=== PATIENT | female | born 1950 | race Caucasian/White ===

== ENCOUNTER → 2017-11-22 | Outpatient (CLI) | payer OTHER | END | disposition home or self-care (01) | LOC: C.PATHSPEC 17:21 | PROVIDERS: ATTEND Plastic Surgery | DX: R22.9 Localized swelling, mass and lump, unspecified (principal); L72.0 Epidermal cyst ==

== ENCOUNTER 2022-04-11 10:04 | Observation (INO) ==
--- NOTE | 2022-03-13 08:35 | PAT Medication Instructions ---
Medication Instructions Date of Service March 13, 2022 Home Medications Medication Instructions Recorded benralizumab 30 mg/mL subcutaneous 30 mg SQ .COMPLEX #1 ml 06/24/19 syringe (Fasenra) epinephrine 0.3 mg/0.3 mL 0.3 mg IM Q10M PRN #1 pkt 06/24/19 injection, auto-injector Wheeled Walker #1 ea 02/16/22 albuterol sulfate 90 mcg/actuation aerosol inhaler 2 puffs INHALATION BID PRN aspirin 325 mg tablet 325 mg PO BID budesonide-formoterol HFA 160 mcg-4.5 mcg/actuation aerosol inhaler 2 puffs INHALATION BID cetirizine 10 mg capsule 10 mg PO DAILY PRN cholecalciferol (vitamin D3) 25 mcg (1,000 unit) capsule 1,000 units PO QAM fenofibrate 160 mg tablet 160 mg PO PM montelukast 10 mg tablet 10 mg PO HS omega-3 fatty acids 1,000 mg capsule (Fish Oil Concentrate) 1,000 mg PO HS triamcinolone acetonide 0.1 % topical ointment 1 appln TOPICAL BID benralizumab 30 mg/mL subcutaneous syringe (Fasenra) 30 mg SQ .COMPLEX epinephrine 0.3 mg/0.3 mL injection, auto-injector 0.3 mg IM Q10M PRN biotin 1,000 mcg chewable tablet 1,000 mcg PO QAM doxycycline hyclate 100 mg capsule 100 mg PO BID Continue as directed epinephrine 0.3 mg/0.3 mL injection, auto-injector 0.3 mg IM Q10M PRN (if needed) ASK your prescriber and surgeon benralizumab 30 mg/mL subcutaneous syringe (Fasenra) 30 mg SQ .COMPLEX aspirin 325 mg tablet 325 mg PO BID STOP taking 2 weeks before surgery (or as soon as possible if surgery is within 2 weeks) omega-3 fatty acids 1,000 mg capsule (Fish Oil Concentrate) 1,000 mg PO HS STOP taking 48 hours before surgery fenofibrate 160 mg tablet 160 mg PO PM STOP taking 24 hours before surgery triamcinolone acetonide 0.1 % topical ointment 1 appln TOPICAL BID DO NOT take the morning of surgery cetirizine 10 mg capsule 10 mg PO DAILY PRN cholecalciferol (vitamin D3) 25 mcg (1,000 unit) capsule 1,000 units PO QAM biotin 1,000 mcg chewable tablet 1,000 mcg PO QAM Take morning of surgery With a small sip of water, OTHERWISE NOTHING TO EAT OR DRINK AFTER MIDNIGHT: albuterol sulfate 90 mcg/actuation aerosol inhaler 2 puffs INHALATION BID PRN (use if needed; please bring rescue inhaler with you to hospital day of surgery if possible) budesonide-formoterol HFA 160 mcg-4.5 mcg/actuation aerosol inhaler 2 puffs INHALATION BID doxycycline hyclate 100 mg capsule 100 mg PO BID Take evening before surgery albuterol sulfate 90 mcg/actuation aerosol inhaler 2 puffs INHALATION BID PRN (if needed) budesonide-formoterol HFA 160 mcg-4.5 mcg/actuation aerosol inhaler 2 puffs INHALATION BID cetirizine 10 mg capsule 10 mg PO DAILY PRN (if needed) montelukast 10 mg tablet 10 mg PO HS doxycycline hyclate 100 mg capsule 100 mg PO BID Other Notes If you have any questions please call us at [phone] or [phone] or [phone] or [phone]
--- NOTE | 2022-03-14 12:16 | Anesthesiology Consultation ---
Date of Service March 14, 2022 Assessment & Plan (1) Encounter for pre-operative examination: - PCP clearance prior to surgery with persistent respiratory symptoms, abnormal respiratory examination and new leukopenia (3.3). Pt aware and agrees, verbalized understanding she is to remain in communication with her PCP. Awaiting medical clearance. - cardiology office visit 11/21/21 [facility]: "...doing well from cardiovascular perspective at this time...caution with change in positions to minimize symptomatic orthostatic hypotension...f/u in 1 year or sooner..." - ASA: to surgeon/prescriber instructions. Pt states per manager molecular/ENT is to reduce ASA to 325 mg daily at certain pre-op interval and wants to confirm with anesthesiologist this is acceptable for neuraxial anesthesia. This was confirmed with Dr. Ramirez that patient would still be candidate for neuraxial anesthesia. - COVID screening: Per assessment on 03/14/2022: Travel screen negative, no known COVID-19 positive contacts or current COVID-19 related symptoms in past 2 weeks. Patient vaccinated. Surgeon arranging preop COVID testing, scheduled 04/07/2022. Awaiting results. Chart Review Chart Review: Pending: Refer to Additional Notes / Consult section and Patient seen in Pre Admission Testing Teaching & Discussion - Pre-Anesthesia Teaching/Discussion Notes: Instructed NPO after midnight before surgery, except medications with 15 cc of water. Medication instructions provided according to the PAT guidelines. - Pt had booklet of written questions in clinic, most covered however pt expressed difficulty sorting through papers in clinic and with need to discuss medication list mutual decision making patient will call my direct number when available tomorrow afternoon. - Pt contacted clinic and provided updated medication list. Medication list will be mailed to her, she states will call office if does not receive instructions in mail. I relayed testing results in detail, she is aware of need to follow-up with her PCP prior to surgery and also overall regarding her persistent respiratory symptoms. She inquired if should start taking iron supplement given that Hgb was 11.8, I advised she should further discuss with PCP as iron testing is not obtained as standard pre-op evaluation and Hgb is very minimally reduced. She requested copy of letter being faxed to PCP also be mailed to her which we will send and that testing be faxed to ENT-Dr. Robledo in [place] and cardiology-Dr. Syed with [facility]. I advised we can send results to those providers for chart completion. She expressed appreciation for discussion and confirmed all questions were answered to her satisfaction, denied additional questions. - Total time in direct conversation with patient-60 minutes at appointment, 15 minutes on phone. History Surgery Operation Date: 04/11/22 07:00 Proposed Procedures p Right Total Knee Arthroplasty - Herman Peters MD Diagnosis in chart of right knee osteomyelitis. Pt denies, not noted in most recent ortho note-per Joanna with surgeon's office should be osteoarthritis and their office will adjust. Removed dx from this note. Height/Weight Height: 5 ft 8 in Weight: 78.1 kg Allergies Allergy/AdvReac Type Severity Reaction Status Date / Time ibuprofen Allergy Severe Anaphylaxis Verified 03/14/22 12:44 naproxen Allergy Severe SHORTNESS Verified 03/10/22 14:16 OF BREATH adhesive Allergy Intermediate Rash Verified 03/10/22 14:16 cefuroxime Allergy Intermediate hives Verified 03/14/22 12:44 clarithromycin [From Biaxin] Allergy Intermediate Hives Verified 03/10/22 14:16 latex Allergy Intermediate Rash Verified 03/10/22 14:16 levofloxacin [From Levaquin] Allergy Intermediate Rash Verified 03/10/22 14:16 moxifloxacin Allergy Intermediate hives Verified 03/14/22 12:44 rosuvastatin [From Crestor] Allergy Intermediate Muscle Pain Verified 03/10/22 14:16 Sulfa (Sulfonamide Allergy Intermediate Rash Verified 03/10/22 14:16 Antibiotics) soy Allergy Mild itching Verified 03/10/22 14:17 Medications Home Medications Medication Instructions Recorded Confirmed Last Taken albuterol sulfate 90 mcg/actuation 2 puffs INHALATION BID PRN #1 gm 06/17/19 Unknown aerosol inhaler aspirin 325 mg tablet 325 mg PO BID tab 06/17/19 03/10/22 Unknown budesonide-formoterol HFA 160 2 puffs INHALATION BID #3 gm 06/17/19 03/10/22 Unknown mcg-4.5 mcg/actuation aerosol inhaler cetirizine 10 mg capsule 10 mg PO DAILY PRN cap 06/17/19 03/10/22 Unknown cholecalciferol (vitamin D3) 25 1,000 units PO QAM cap 06/17/19 03/10/22 Unknown mcg (1,000 unit) capsule fenofibrate 160 mg tablet 160 mg PO PM tab 06/17/19 03/10/22 Unknown montelukast 10 mg tablet 10 mg PO HS tab 06/17/19 03/10/22 Unknown omega-3 fatty acids 1,000 mg 1,000 mg PO HS 06/17/19 03/10/22 Unknown capsule (Fish Oil Concentrate) triamcinolone acetonide 0.1 % 1 appln TOPICAL BID #1 gm 06/17/19 03/10/22 Unknown topical ointment benralizumab 30 mg/mL subcutaneous 30 mg SQ .COMPLEX #1 ml 06/24/19 03/10/22 Unknown syringe (Fasenra) epinephrine 0.3 mg/0.3 mL 0.3 mg IM Q10M PRN #1 pkt 06/24/19 03/10/22 Unknown injection, auto-injector Wheeled Walker #1 ea 02/16/22 02/16/22 Unknown biotin 1,000 mcg chewable tablet 1,000 mcg PO QAM 03/10/22 03/10/22 Unknown doxycycline hyclate 100 mg capsule 100 mg PO BID 03/10/22 03/10/22 Unknown Valtrex PO PRN 03/14/22 Unknown ascorbic acid (vitamin C) PO DAILY 03/14/22 Unknown famotidine PO PRN 03/14/22 Unknown Metamucil 03/15/22 Unknown guaifenesin 03/15/22 Unknown Additional Notes: Pt has multiple medications not in system, unsure of current regimen for upper respiratory illness. We discussed options and she is going to call office when available tomorrow afternoon and she states will have updated medication list, I will mail medication list to her. Past Medical History Medical History (Updated 03/15/22 @ 08:46 by Vivian Alcantar PA-C) Aortic regurgitation mild per 2019 echo Aortic stenosis mild per 2019 echo Aspirin sensitivity s/p de-sensitization therapy Asthma severe persistent/eosinophilic per manager molecular records; reports somewhat increased during current illness; states has not been using maintenance inhaler for some time; last rescue inhaler use 2 wks ago-average use several times monthly; follows with Dr. Ross, [place] manager molecular and Dr. Robledo, ENT Bronchitis amoxicillin and prednisone with persistent symptoms, on doxycycline x 6 days at present, reports slight improvement though persistent cough Cardiac murmur follows with Dr. Syed Carotid artery stenosis < 50% stenosis ICA bilat per 2019 carotid duplex Chronic sinusitis Degenerative disc disease Depression remote hx Diverticular disease hx, daily Metamucil Esophageal reflux prn famotidine Herpes simplex current cold sore, taking Valtrex History of actinic keratoses History of Mohs micrographic surgery for skin cancer scalp History of penicillin allergy Pt states s/p desensitization therapy, reports no problems with recent amoxicillin course Hyperlipidemia Incomplete bladder emptying Osteoporosis lumbar per pt Polyp, nasal sinus s/p multiple procedures, required IV antibiotic x 2 wks approx 5 yrs ago d/t weakened condition d/t extensive sinus dysfunction requiring multiple procedures per pt Psoriasis resolved after scalp Mohs surgery Pulmonary regurgitation mild per 2019 echo Samter's triad Vertigo resolves with physical therapy Patient denies h/o stroke, seizures, heart attack, heart failure, DM, HTN, blood clots or blood transfusions. Exercise / Class Metabolic Activity II 4-5 Yardwork/Stairs/Walk up hill (denies CP or SOB with 1 FOS) Past Family History Family History Other Dyslipidemia Heart disease Hypertension Myocardial infarction Past Surgical History Surgical History History of appendectomy History of colonoscopy History of oral surgery tooth extractions with implants History of sinus surgery several History of tonsillectomy Hx of surgical procedure growth removed from neck area > benign Mucocele of ethmoid sinus with surgery in 1989 Past Anesthesia History No Hx of Anesthesia Complications and No Family Hx of Anesthesia Complications History of PONV History of PONV (early , denies recent issues with pre-dosed medication) and Hx of Motion Sickness Social History Smoking Status: Former smoker Do You Dip or Chew Tobacco: No Smoking End Date: 1983 Hx Alcohol Use: Yes Alcohol type: wine and hard liquor alcohol intake frequency: holidays/special occasions only Hx Substance Use: No substance use type: does not use Review of Systems Fever, chills several weeks ago. She reports palpitations with prednisone, resolved with completing medication. Patient denies chest pain, shortness of breath, dyspnea on exertion, snoring, or witnessed apneas. Physical Exam Vital Signs Vitals BP 145/80 (She states readings are typically 110s/60s and is stressed regarding upcoming surgery) P 65 TEMP 98.8 SP02 95% on RA RESP 17 Physical Full cervical extension range of motion without pain TMD 3.5 finger breaths Mallampati Score 2 Dentition: intact, implants lower back bilat, several crowns-none in front; denies chipped or loose teeth or bridges Lungs: normal respiratory effort. Patient speaking clearly in full sentences without difficulty. Intermittent cough. Good air movement, diffuse expiratory wheezes, no rales or rhonchi Cardiac: regular rate and rhythm, 2/6 systolic murmur Carotid arteries: negative bruit bilat Lab Results Anesthesia Preop Results Results Anesthesia Widget: WBC 3.31 K/uL (4.8-10.8) L 03/14/22 Hgb 11.8 g/dL (12.0-16.0) L 03/14/22 Hct 37.4 % (37-47) 03/14/22 Plt 220 K/uL (130-400) 03/14/22 Na 140 mmol/L (136-145) 03/14/22 K 4.0 mmol/L (3.5-5.1) 03/14/22 Cl 109 mmol/L (98-107) H 03/14/22 CO2 25 mmol/L (21-32) 03/14/22 BUN 18 mg/dl (6-23) 03/14/22 Creat 0.61 mg/dl (0.6-1.2) 03/14/22 Glucose Level 90 mg/dl (70-99(Fasting)) 03/14/22 PT 10.9 Seconds (9.0-12.0) 03/14/22 PTT 26.1 Seconds (21.0-31.0) 03/14/22 INR 1.0 (0.9-1.1) 03/14/22 Blood Type O Positive 03/14/22 Antibody Screen NEGATIVE 03/14/22 Testing Electrocardiogram Date: 03/14/22 NSR, rate 70 bpm Chest X-Ray Date: 03/14/22 The cardiomediastinal silhouette is unremarkable noting atherosclerotic calcification of the thoracic aorta. There is mild bibasilar scarring/atelectasis. No airspace consolidation or pleural effusion is identified. Nonspecific interstitial thickening is likely chronic. There is no pneumothorax. The skeletal structures are osteopenic. The bony thorax appears intact. IMPRESSION: No active disease in the chest. Echocardiogram Date: 09/15/20 EF 59% LV wall motion normal Mild aortic valve stenosis Mild aortic valve regurgitation Mild pulmonary regurgitation Stress Test Date: 07/02/17 Exercise MPHR 100% EF 55-59% Normal LV wall thickness, no "clear-cut" wall motion abnormalities Grade I diastolic dysfunction Other Testing Carotid duplex 06/16/2019 Right carotid artery duplex examination indicates evidence of less than 50% stenosis of the internal carotid artery. Left carotid artery duplex examination indicates evidence of less than 50% stenosis of the internal carotid artery.
--- NOTE | 2022-03-15 14:55 | PAT Medication Instructions ---
Medication Instructions Date of Service March 15, 2022 Home Medications Medication Instructions Recorded benralizumab 30 mg/mL subcutaneous 30 mg SQ .COMPLEX #1 ml 06/24/19 syringe (Fasenra) epinephrine 0.3 mg/0.3 mL 0.3 mg IM Q10M PRN #1 pkt 06/24/19 injection, auto-injector Wheeled Walker #1 ea 02/16/22 albuterol sulfate 90 mcg/actuation aerosol inhaler 2 puffs INHALATION BID PRN aspirin 325 mg tablet 325 mg PO BID budesonide-formoterol HFA 160 mcg-4.5 mcg/actuation aerosol inhaler 2 puffs INHALATION BID cetirizine 10 mg capsule 10 mg PO DAILY PRN cholecalciferol (vitamin D3) 25 mcg (1,000 unit) capsule 1,000 units PO QAM fenofibrate 160 mg tablet 160 mg PO PM montelukast 10 mg tablet 10 mg PO HS omega-3 fatty acids 1,000 mg capsule (Fish Oil Concentrate) 1,000 mg PO HS triamcinolone acetonide 0.1 % topical ointment 1 appln TOPICAL BID benralizumab 30 mg/mL subcutaneous syringe (Fasenra) 30 mg SQ .COMPLEX epinephrine 0.3 mg/0.3 mL injection, auto-injector 0.3 mg IM Q10M PRN Amanda Walker #1 ea biotin 1,000 mcg chewable tablet 1,000 mcg PO QAM doxycycline hyclate 100 mg capsule 100 mg PO BID Valtrex PO PRN ascorbic acid (vitamin C) PO DAILY famotidine PO PRN Metamucil guaifenesin Continue as directed epinephrine 0.3 mg/0.3 mL injection, auto-injector 0.3 mg IM Q10M PRN(if needed) doxycycline hyclate 100 mg capsule 100 mg PO BID Valtrex PO PRN(if needed) ASK your prescriber and surgeon aspirin 325 mg tablet 325 mg PO BID benralizumab 30 mg/mL subcutaneous syringe (Fasenra) 30 mg SQ .COMPLEX STOP taking 2 weeks before surgery omega-3 fatty acids 1,000 mg capsule (Fish Oil Concentrate) 1,000 mg PO HS biotin 1,000 mcg chewable tablet 1,000 mcg PO QAM STOP taking 48 hours before surgery fenofibrate 160 mg tablet 160 mg PO PM STOP taking 24 hours before surgery triamcinolone acetonide 0.1 % topical ointment 1 appln TOPICAL BID DO NOT take the morning of surgery cetirizine 10 mg capsule 10 mg PO DAILY PRN cholecalciferol (vitamin D3) 25 mcg (1,000 unit) capsule 1,000 units PO QAM ascorbic acid (vitamin C) PO DAILY guaifenesin Metamucil [place] Take morning of surgery With a small sip of water, OTHERWISE NOTHING TO EAT OR DRINK AFTER MIDNIGHT: albuterol sulfate 90 mcg/actuation aerosol inhaler 2 puffs INHALATION BID PRN (use if needed; please bring with you to hospital day of surgery if possible) budesonide-formoterol HFA 160 mcg-4.5 mcg/actuation aerosol inhaler 2 puffs INH ALATION BID famotidine PO PRN(if needed) Take evening before surgery albuterol sulfate 90 mcg/actuation aerosol inhaler 2 puffs INHALATION BID PRN(if needed) budesonide-formoterol HFA 160 mcg-4.5 mcg/actuation aerosol inhaler 2 puffs INHALATION BID montelukast 10 mg tablet 10 mg PO HS Other Notes If you have any questions please call us at [phone] or [phone] or [phone] or [phone]
--- NOTE | 2022-04-09 11:42 | History and Physical Report ---
DATE OF ADMISSION: 04/11/2022. CHIEF COMPLAINT: Right knee pain. HISTORY OF PRESENT ILLNESS: The patient is a 71-year-old female who presents for surgical treatment of her right knee. She has several-year history of increasing right knee pain and discomfort that beach s gotten significantly worse over the past 2 years. She has been through extensive conservative yashira tment including physical therapy done in [place]. She feels this is made her knee stronger, but no t helped relieve her pain. She is followed by Dr. Talamantes, the [facility] in service education teacher. She has had some intermittent injections, which sometimes help and other times has been painful. She describ es global pain. She cannot walk any significant distance. She would now like to have her right knee fixed. PAST MEDICAL HISTORY: Significant for: 1. Heart murmur. 2. Elevated cholesterol. 3. Asthma. 4. Back pain. 5. Significant sinus problems. 6. Unspecified skin cancer. PAST SURGICAL HISTORY: Includes, 1. Neck surgery. 2. Mohs surgery. 3. Sinus surgery. ALLERGIES: SULFA, BACTRIM, STATINS, PREDNISONE. SOCIAL HISTORY: This is a 71-year-old female. She is . Two children. Rare alcohol intake. She does not smoke. FAMILY HISTORY: Significant for heart disease. REVIEW OF SYSTEMS: Negative for diabetes, neurologic problem, vascular problem, or bleeding disorder s. No history of DVT or PE. No known bleeding problems. She does have some chronic sinus issues. PHYSICAL EXAMINATION: GENERAL: Shows a pleasant middle-aged female. Looks to be in pretty good health. HEENT: Benign. NECK: Supple. No lymphadenopathy. LUNGS: Clear to auscultation. HEART: Regular rate and rhythm. ABDOMEN: Soft, nontender, nondistended. EXTREMITIES: Grossly neurovascularly intact except as follows. Examination of the right knee reveals the patient walks with a slight bit of a limp. She has valgus alignment to her knee, which goes into further valgus with weightbearing. She has mild tenderness la terally. Small knee joint effusion. Range of motion 5-125. No instability. No pain with hip motio n. X-RAYS: X-rays of the right knee were reviewed. It shows advanced right knee lateral compartment DJ D. She has complete loss of her lateral joint space. She has subchondral sclerosis. Not a lot of o steophyte formation. ASSESSMENT: A 71-year-old female with advanced right knee lateral compartment degenerative joint dis ease. She has failed conservative treatment and would like to have her knee fixed. She has been see n by her medical doctor and cleared for surgery. PLAN: We are going to proceed with right total knee replacement. The risks and benefits of this pro cedure were explained to the patient include but not limited to DVT, PE, , infection, neurologic al injury, vascular injury, bleeding problem, pain, limited range of motion, stiffness, failure to re lieve her symptoms, incomplete relief of symptoms, etc. The patient understands and desires to proce ed. Informed consent was obtained. She does have some chronic sinus issues and has been on chronic aspirin. We will certainly keep her on aspirin in the perioperative period for DVT prophylaxis. She will talk to anesthesia about whethe r she can be still taking this or whether there is any need to do a general anesthesia needs to resol ve. I encouraged her to stop for 10 days beforehand so that she can have a spinal because I think it is better for her, but I will leave that up to her and the anesthesia. She is going to have [facility] program. I will see her back 2 weeks postop. Job ID: [id number]
[~2022-04-11 10:04] MED LIST: ACETAMINOPHEN 500 MG TAB PO SCH; BUPIVACAINE 0.5 % 5 MG/1 ML PF 10ML VIAL ONE; BUPIVACAINE LIPOSOME/PF 266 MG, BUPIVACAINE/EPINEPHRINE 50 ML, SODIUM CHLORIDE 0.9% 30 ... INFIL SCH; FAMOTIDINE 20 MG TAB PO SCH; GABAPENTIN 300 MG CAP PO SCH; LR 500ML BOLUS, THEN 15ML/HR IV SCH; LR 60ML/HR IV SCH; ROPIVACAINE 0.5% 5 MG/ML 30 ML VIAL ONE; TRANEXAMIC ACID 1,000 MG **IV Intra-op IV SCH
[2022-04-11] MEDS ORDERED: VANCOMYCIN CONSULT ACTIVE PRN ×2 (11:34→15:23)
[2022-04-11] MEDS ORDERED: VANCOMYCIN HCL 1,250 MG in SODIUM CHLORIDE 0.9% 500 ML IV STA (11:39)
--- NOTE | 2022-04-11 11:41 | History & Physical Bridge Note ---
Date of Service April 11, 2022 History & Physical Bridge Note I have examined the patient, reviewed the History & Physical and in the interval since the performance of the History & Physical I have noted the following changes of clinical significance: no changes noted
[2022-04-11] MEDS ORDERED: VANCOMYCIN HCL 1,250 MG in SODIUM CHLORIDE 0.9% 250 ML IV ONE (11:45)
[2022-04-11] MEDS ORDERED: fentaNYL citrate 100 MCG/2 ML VIAL ONE (12:03)
[2022-04-11] MEDS ORDERED: MIDAZOLAM HCL 1 MG/ML 2ML VIAL ONE ×2 (12:03→14:20)
[2022-04-11] MEDS ORDERED: ONDANSETRON INJ 2 MG/ML 2 ML VIAL IV PRN ×2 (12:26→16:27)
[2022-04-11] MEDS ORDERED: ATROPINE SULFATE 0.1 MG/ML 10ML SYR IV PRN (12:26)
[2022-04-11] MEDS ORDERED: fentaNYL citrate 100 MCG/2 ML VIAL IV PRN (12:26)
[2022-04-11] MEDS ORDERED: ePHEDrine sulfate 50 MG/ML AMP IV PRN (12:26)
[2022-04-11] MEDS ORDERED: BUPIVACAINE LIPOSOME 1.3% 266 MG/20 ML VIAL ONE (13:13)
[2022-04-11] MEDS ORDERED: SODIUM CHLORIDE 0.9% INJ 10 ML VIAL ONE (13:13)
[2022-04-11] MEDS ORDERED: BUPIVACAINE/EPINEPHRINE 0.25% 1:200,000 30 ML VIAL ONE ×2 (13:13→13:14)
[2022-04-11] MEDS ORDERED: EPINEPHrine INJ 1 MG/ML AMP ONE (13:27)
[2022-04-11] MEDS ORDERED: KETAMINE 50 MG/5 ML SYRINGE ONE (14:01)
[2022-04-11] MEDS ORDERED: ONDANSETRON INJ 2 MG/ML 2 ML VIAL ONE (14:12)
[2022-04-11] MEDS ORDERED: GLYCOPYRROLATE 0.2 MG/ML VIAL ONE (14:12)
[2022-04-11] MEDS ORDERED: ePHEDrine sulfate 50 MG/ML SYR ONE (14:23)
[2022-04-11] MEDS ORDERED: PROPOFOL IV EMULSION 10 MG/ML 20 ML VIAL IV ONE ×2 (14:48→14:55)
--- NOTE | 2022-04-11 15:32 | Operative Report ---
PG Post Operative Report Pre & Post Diagnosis Operation Date: 04/11/22 12:30 Pre-Op Diagnosis: Right Knee Osteoarthritis Post-Op Diagnosis: Right Knee Osteoarthritis I identified the patient and participated in the time-out.: Yes Procedure Operation Date: 04/11/22 12:30 Actual Procedures p Right Total Knee Arthroplasty(Right) - Herman Peters MD Surgeon Herman Peters MD Projector Booth Operator Jay Hawley PA-C Estimated Blood Loss 50 Findings Consistent with Post-Op Diagnosis Operative findings real advanced right knee tricompartment DJD. She had grade 4 disease in all 3 compartments. Not much eburnation or sclerosis but just full- thickness cartilage loss. She did have a moderate-sized joint effusion. Diffuse osteopenia. Specimens Right knee sent for pathology Anesthesia Type Spinal MAC Complications none Disposition Accompanied Patient To Recovery: No Indications Patient is 71-year-old female said a several year history of gradual progressive increasing right knee pain discomfort. She been through extensive conservative treatment which became less successful over time. She elected proceed with total knee arthroplasty. Description of Procedure Operative implants consist of: 1 Biomet Vanguard size 65 right posterior stabilized femoral component. 2. Biomet size 75 tibial tray. 3. 12 mm posterior stabilized polyethylene insert. 4. 31 x 8 all polypatella. The patient was taken to the operating, identified, and placed on the operating table supine position protectors were properly padded. IV antibiotics 5 by anesthesia team. A spinal anesthetic and abductor canal block had provided in the holding area. Wilkerson catheter was placed in sterile fashion. Right thigh tent was then placed in the right lower extremities then prepped and draped in usual sterile fashion. The right leg was elevated exsanguinated with use of an Esmarch and the tourniquet was set at 300 mmHg. An anterior approach to the right knee was then performed to longitudinal incision centered over the patella. Sharp dissection was got through subcutaneous this down the extensor mechanism. A medial parapatellar arthrotomy incision was made. Some subperiosteal dissection was carried out medially. The fat pad was dissected beneath patella tendon. Lateral patellofemoral ligament was released. Patella was subluxated laterally and the knee was flexed. The osteophytes were taken off distal femur. The ACL and PCL were then released from the distal femur and the tibia subluxated anteriorly. The external tibial alignment jig was then placed the interface the tibia and adjusted 12 mm medially. Proximal tibial cut was made remove about 3 to 4 mm of bone from the medial side. Her bone was pretty osteopenic. The tibia sized to a size 75. I really try to maximize coverage due to her osteopenia. Attention drawn the femur. The distal femur was entered with a sharp drill. Intramedullary canal was suction. A right 5 degree valgus cutting guide was placed. Distal femoral cutting block was pinned in place. Distal femoral cut was made to take an additional 3 mm of bone off distal femur. Femur was then sized to a size 65. The AP cutting block was pinned parallel to the epicondylar axis which was 4 degrees of external rotation. The anterior cut, anterior chamfer, posterior cut, posterior chamfer cuts were made. Box cutting guide was placed in the just slight lateral box cut was made. The knee was flexed. The remnants of the medial and lateral menisci were excised. I did have to release the popliteus in order to equalize the flexion gap. Great care was taken to protect the peroneal nerve at all times. A trial femoral component was placed. The tibial tray was pinned in maximum external rotation and the drill and stem punch were used. Defect in proximal tibia for the tibial tray. Knee was then trialed and the 12 mm insert fit most appropriately. Attention drawn the patella. The patella was cleaned of all soft tissues. Patella thickness measured 23 mm in thickness cut down to 13. Was sized to a size 31 patella. The lug holes were drilled for the 31 patella. The lateral osteophyte was removed. Patella button was placed. Knee was taken through range of motion and the patella tracked nicely with no thumbs test. Attention drawn to place the permanent components. All trial components were removed. Bone plug was placed in the distal femur limit blood loss. A double batch [place] G cement was mixed. Biomet Vanguard size 65 right posterior stabilized femoral component, a size 75 tibial tray, 12 mm posterior stabilized polyethylene insert, and a 31 x 8 all polypatella then cemented in place. Knee was brought out into full extension total cement hardened. Final cement check was then performed. Pericapsular tissues were injected with total 100 cc of combination of 20 cc of Exparel, 30 cc normal saline, 50 cc of quarter percent Marcaine with epinephrine. Patient did receive 1 g tranexamic acid. The tourniquet was then let down for final tourniquet time 50 minutes. Hemostasis assured use electrocautery. Extensor mechanism closed with combination 1 PDS suture #1 Vicryl suture in a [id number] fashion with extensor mechanism checked found to be intact and subcutaneous tissue then closed with 2 Dexon suture in a buried interrupted fashion. Skin was closed skin chris. Leg was then cleaned and dried and sterile dressed with Xeroform, 4 fours, sterile cast padding, Johny bandage were applied. Patient then transferred to the recovery room in stable condition. Patient tolerated procedure well and there were no complications. Jay Hawley, my physician senior executive assistant, was present for the entire procedure. His assistance was essential and required for appropriate patient positioning, pre pping and draping, surgical exposure, performing the technical details of the operation, placement the implants, closure of the wound, and placement of the sterile bandage. I attest to the content of the Intraoperative Record and any orders documented therein. Any exceptions are noted below.
--- NOTE | 2022-04-11 15:44 | Anesthesiology Progress Note ---
Date of Service April 11, 2022 Anesthesia Post Procedure Vital Signs Vital Signs: Temp Pulse Pulse Resp BP Pulse Ox 04/11/22 15:40 90 16 120/73 98 04/11/22 15:30 86 12 112/67 97 04/11/22 15:22 36.6 C 93 H 22 115/68 96 04/11/22 10:43 36.7 C 78 20 127/71 96 Transfer of Care Handoff Completed per policy Notes Mental Status: alert / awake / arousable Patient Amnestic to Procedure: Yes Nausea / Vomiting: adequately controlled Pain: adequately controlled Airway Patency, RR, SpO2: stable & adequate BP & HR: stable & adequate Hydration State: stable & adequate Neuraxial Anesthesia: was administered and sensory block is resolving Anesthetic Complications: no major complications apparent and Pt Satisfied with anesthetic care
[2022-04-11] MEDS ORDERED: NON-FORMULARY MEDICATION (Benralizumab [Fasenra] 30 mg/mL syringe) SQ SCH (16:27)
[2022-04-11] MEDS ORDERED: NALOXONE HCL 0.4 MG/1 ML VIAL/CARP IV PRN (16:27)
[2022-04-11] MEDS ORDERED: METOCLOPRAMIDE HCL INJ 5 MG/ML 2 ML VIAL IV PRN (16:27)
[2022-04-11] MEDS ORDERED: EPINEPHrine ADULT AUTO-INJECT 0.3 MG SYR IM PRN (16:27)
[2022-04-11] MEDS ORDERED: MAGNESIUM HYDROXIDE SUSP 30 ML UDC PO PRN (16:27)
[2022-04-11] MEDS ORDERED: ALUMINUM/MAGNESIUM SUSP 30 ML UDC PO PRN (16:27)
[2022-04-11] MEDS ORDERED: bisacodyL 10 MG SUPP PR PRN (16:27)
[2022-04-11] MEDS ORDERED: ALBUTEROL HFA 8 GM INHALER INH PRN (16:27)
[2022-04-11] MEDS: ASCORBIC ACID 500 MG TAB PO SCH (17:10)
[2022-04-11] MEDS: SODIUM CHLORIDE 0.9% 1000ML 1,000 ML IV SCH (17:10)
[2022-04-11] MEDS ORDERED: CETIRIZINE HCL 10 MG TABLET PO PRN (17:10)
--- NOTE | 2022-04-11 17:19 | XRay Report ---
XR knee RT 1 or 2V routine CLINICAL HISTORY: Surgical Post Op. Status post total knee replacement COMPARISON STUDY: No previous studies for comparison. TECHNIQUE: 2 right knee views FINDINGS: The patient is status post total knee replacement. The prosthetic components are in anatomi c alignment with no acute abnormality seen. Air is present within the soft tissues from the procedure . Skin chris are seen anteriorly. IMPRESSION: 1. Status post total knee replacement. ACT 112: Negative or not required by law. Electronically signed by: Angel Ruvalcaba M.D. 04/11/2022 5:18 PM
[2022-04-11] MEDS ORDERED: VANCOMYCIN HCL 1,250 MG in SODIUM CHLORIDE 0.9% 500 ML IV ONE (18:00)
[2022-04-11] MEDS: oxyCODONE HCL IR 5 MG TAB (IMMEDIATE RELEASE) PO PRN (18:23)
[2022-04-11] MEDS: HYDROmorphone INJ 0.5 MG/0.5 ML SYR IV PRN (20:35)
[2022-04-11] MEDS: ASPIRIN 325 MG ECTAB PO SCH (20:37)
[2022-04-11] MEDS: DOCUSATE SODIUM 100 MG CAP PO SCH (20:38)
[2022-04-11] MEDS: FENOFIBRATE NANOCRYSTALLIZED 145 MG TABLET PO SCH (20:38)
[2022-04-11] MEDS: OMEGA-3 (PURIFIED FISH OIL) 1 GM CAP PO SCH (20:38)
[2022-04-11] MEDS: SENNA 8.6 MG TAB PO SCH (20:39)
[2022-04-11] MEDS: MONTELUKAST SODIUM 10 MG TABLET PO SCH (20:39)
[2022-04-11] MEDS: TRIAMCINOLONE ACET 0.1% OINT 15 GM TUBE TOP SCH (20:40)
[2022-04-11] MEDS: ACETAMINOPHEN 500 MG TAB PO SCH (21:02)
[2022-04-11] MEDS: ALLERGY Noted to ORDERED Medication SCH ×6 (21:06→22:01)
[2022-04-11] MEDS ORDERED: TRANEXAMIC ACID / 0.7% NACL 1,000 MG/100 ML BAG IV SCH (21:30)
[2022-04-12] MEDS: HYDROmorphone INJ 0.5 MG/0.5 ML SYR IV PRN ×4 (00:43→18:08)
[2022-04-12] MEDS: oxyCODONE HCL IR 5 MG TAB (IMMEDIATE RELEASE) PO PRN ×3 (03:04→15:46)
[2022-04-12] MEDS: SODIUM CHLORIDE 0.9% 1000ML 1,000 ML IV SCH (03:16)
[2022-04-12] MEDS: ACETAMINOPHEN 500 MG TAB PO SCH ×3 (05:44→20:50)
[2022-04-12] MEDS ORDERED: dexAMETHasone 10 MG in SYRINGE 0 ML IV SCH (08:00)
[2022-04-12] MEDS: DOCUSATE SODIUM 100 MG CAP PO SCH ×2 (08:17→20:47)
[2022-04-12] MEDS: CHOLECALCIFEROL 1,000 UNITS 25 MCG TAB PO SCH (08:17)
[2022-04-12] MEDS: ASPIRIN 325 MG ECTAB PO SCH ×2 (08:17→20:47)
[2022-04-12] MEDS: MULTIVITAMIN TAB PO SCH (08:17)
[2022-04-12] MEDS: ASCORBIC ACID 500 MG TAB PO SCH ×2 (08:17→16:26)
[2022-04-12] MEDS: DOCUSATE SODIUM/SENNA 50/8.6MG TAB PO SCH (08:17)
[2022-04-12] MEDS: ALLERGY Noted to ORDERED Medication SCH ×2 (08:18→16:20)
[2022-04-12] MEDS: FLUTICASONE/VILANTEROL 200/25MCG 14 PUFFS/INHALER INH SCH (08:19)
[2022-04-12] MEDS: TRIAMCINOLONE ACET 0.1% OINT 15 GM TUBE TOP SCH ×2 (08:19→20:49)
[2022-04-12 08:55] LABS: Hematocrit (blood only) 31.7 % (37-47); Hemoglobin 9.9 g/dL (12.0-16.0); Mean Corpuscular Hemoglobin 26.3 pg (25-34); Mean Corpuscular Hgb Conc 31.2 g/dL (32-36); Mean Corpuscular Volume 84.1 fL (80-100); Mean Platelet Volume 10.1 fL (7.4-10.4); Platelet Count 233 K/uL (130-400); RDW Coefficient of Variation 17.9 % (11.5-14.5); Red Blood Count 3.77 M/uL (4.2-5.4); White Blood Count 7.74 K/uL (4.8-10.8)
[2022-04-12] MEDS ORDERED: NON-FORMULARY MEDICATION (Biotin 1,000 mcg Tablet,Chewable) PO SCH (09:00)
[2022-04-12 09:16] LABS: BUN Creatinine Ratio 16.7 (10-20); Calcium 8.9 mg/dl (8.5-10.1); Creatinine Clr Calc Pharmacy 91.1 ml/min; Est GFR (African American) 104.8 ml/min; Est GFR (Non-African American) 90.4 ml/min; Potassium 4.1 mmol/L (3.5-5.1)
[2022-04-12] MEDS: ONDANSETRON 4 MG OD TAB PO PRN (09:48)
--- NOTE | 2022-04-12 10:51 | Progress Notes ---
DATE OF NOTE: 04/12/2022. SUBJECTIVE: A 71-year-old female postop day 1 from right knee replacement. She is doing reasonably well. Having a moderate amount of knee pain. Nothing out of the ordinary. No chest pain or shortne ss of breath. Not feeling dizzy or lightheaded. OBJECTIVE: VITAL SIGNS: Temperature 36.9. Vital signs are stable. GENERAL: Shows a pleasant, elderly female. Sitting up in bed and eating her breakfast this morning. Looks reasonably comfortable. LUNGS: Clear to auscultation. HEART: Regular rate and rhythm. ABDOMEN: Soft, nontender, nondistended. EXTREMITIES: Grossly neurovascularly intact except as follows. Examination of the right leg reveals the leg to be well aligned. Dressings clean, dry and intact. S he can dorsiflex and plantarflex her foot appropriately. She is neurologically intact. LABORATORY: Hemoglobin 9.9. Hematocrit 31.7. Electrolytes are stable. ASSESSMENT: A 71-year-old female postop day 1 from right knee replacement, doing pretty well. Pain is controlled. She is neurologically intact. PLAN: 1. DVT prophylaxis include thigh-high TEDs, SCDs, and aspirin twice a day. 2. PT/OT. She can weight bear as tolerated, right lower extremity. 3. Pain control, doing okay with current pain regimen. She is having some pain which is to be expec andre. 4. Disposition: Plan is to discharge her to home with some home health if she does okay in therapy. Job ID: [id number]
[2022-04-12] MEDS: FENOFIBRATE NANOCRYSTALLIZED 145 MG TABLET PO SCH (20:48)
[2022-04-12] MEDS: OMEGA-3 (PURIFIED FISH OIL) 1 GM CAP PO SCH (20:48)
[2022-04-12] MEDS: SENNA 8.6 MG TAB PO SCH (20:49)
[2022-04-12] MEDS: MONTELUKAST SODIUM 10 MG TABLET PO SCH (20:49)
[2022-04-13] MEDS: ALLERGY Noted to ORDERED Medication SCH ×2 (00:21→07:46)
[2022-04-13] MEDS: oxyCODONE HCL IR 5 MG TAB (IMMEDIATE RELEASE) PO PRN ×3 (00:26→13:13)
[2022-04-13] MEDS: ACETAMINOPHEN 500 MG TAB PO SCH (06:41)
[2022-04-13] MEDS: ASCORBIC ACID 500 MG TAB PO SCH (07:46)
[2022-04-13] MEDS: CHOLECALCIFEROL 1,000 UNITS 25 MCG TAB PO SCH (07:46)
[2022-04-13] MEDS: DOCUSATE SODIUM 100 MG CAP PO SCH (07:47)
[2022-04-13] MEDS: ASPIRIN 325 MG ECTAB PO SCH (07:47)
[2022-04-13] MEDS: MULTIVITAMIN TAB PO SCH (07:47)
[2022-04-13] MEDS: FLUTICASONE/VILANTEROL 200/25MCG 14 PUFFS/INHALER INH SCH (07:47)
[2022-04-13] MEDS: DOCUSATE SODIUM/SENNA 50/8.6MG TAB PO SCH (07:47)
[2022-04-13] MEDS: TRIAMCINOLONE ACET 0.1% OINT 15 GM TUBE TOP SCH (07:48)
[2022-04-13] MEDS: ONDANSETRON 4 MG OD TAB PO PRN (09:54)
--- NOTE | 2022-04-13 15:40 | Progress Notes ---
DATE OF SERVICE: 04/13/2022 SUBJECTIVE: A 71-year-old female postop day 2 from a right knee replacement. She is doing quite a b it better today. She is having a moderate amount of pain, but it is controlled. She has been gettin g around a little bit better. Denies any chest pain or shortness of breath. Not feeling dizzy or li ghtheaded. OBJECTIVE: VITAL SIGNS: Temperature 36.7. Vital signs are stable. PHYSICAL EXAMINATION: GENERAL: Shows a pleasant middle-aged female. She is sitting up in her bedside chair, looks pretty comfortable. EXTREMITIES: Examination of the right knee reveals the dressing to be clean, dry and intact. No chana inage. Calf is soft and supple. She can dorsiflex and plantarflex her foot appropriately. She is n eurologically intact. LABORATORIES: No new labs. ASSESSMENT: A 71-year-old white female postoperative day 2 from right knee replacement, doing pretty well. PLAN: 1. DVT prophylaxis includes thigh-high TEDs, SCDs, and aspirin twice a day. 2. PT, OT, weightbear as tolerated. Right total knee protocol. 3. Pain control, doing okay with current pain regimen. 4. Disposition: Plan to discharge to home with some home health later today. Job ID: [id number]
== END 2022-04-13 13:51 | disposition home health service (06) ==
LOC: 3E 10:04 → ASU 10:04